=== PATIENT | female | born 1985 | race Hispanic/Latino ===

== ENCOUNTER 2017-08-02 18:58 | Observation (INO) | payer OTHER ==
[~2017-08-02] VITALS: Ht 160 cm; Wt 92.1 kg
[2017-08-02] MEDS ORDERED: PREN1TAB89 PO (19:23)
[2017-08-02] MEDS ORDERED: LACTATED RINGERS 1000ML IV PRN (19:30)
[2017-08-02 19:37] LABS: BILIRUBIN,URINE Negative (NEGATIVE); COLOR,URINE Dark Yellow (YELLOW); GLUCOSE, URINE (UA) Negative (NEGATIVE); KETONES,URINE Trace mg/dL (NEGATIVE); LEUKOCYTE ESTERASE ,URINE Trace (NEGATIVE); NITRATE,URINE Negative (NEGATIVE); OCCULT BLOOD,URINE Negative (NEGATIVE); PROTEIN,URINE Negative (NEGATIVE)
[2017-08-02 19:42] LABS: APPEARANCE,URINE SLIGHTLY CLOUDY (CLEAR)
[2017-08-02 19:44] VITALS: BP 139/78
[2017-08-02 20:25] LABS: RBC,URINE 0-1 /HPF (0-1)
[2017-08-02] MEDS ORDERED: LACTATED RINGERS 1000ML 1,000 ML IV SCH (20:30)
[2017-08-02 20:31] LABS: BACTERIA,URINE Few /HPF (None Seen); SQUAMOUS EPITHELIAL CELL,UR Moderate /LPF (0-2)
[2017-08-02 20:32] LABS: MUCUS,URINE Few LPF (None Seen)
== END 2017-08-02 21:05 | disposition home or self-care (01) ==
LOC: EDH 18:58 → LDH 19:28
PROVIDERS: ADMIT Obstetrics & Gynecology; ATTEND Obstetrics & Gynecology
DX: O26.892 Other specified pregnancy related conditions, second trimester (principal); R10.32 Left lower quadrant pain; R10.30 Lower abdominal pain, unspecified; Z3A.22 22 weeks gestation of pregnancy
CPT/HCPCS: 81001; 99285; G0378 ×2

== ENCOUNTER 2017-08-15 20:22 | Inpatient (IN) | payer OTHER ==
[~2017-08-15] VITALS: Ht 160 cm; Wt 95.3 kg
[~2017-08-15 20:22] MED LIST: PREN1TAB89 PO
[2017-08-15 20:51] LABS: APPEARANCE,URINE Cloudy (CLEAR); BILIRUBIN,URINE Negative (NEGATIVE); COLOR,URINE Yellow (YELLOW); GLUCOSE, URINE (UA) Negative (NEGATIVE); KETONES,URINE Negative (NEGATIVE); LEUKOCYTE ESTERASE ,URINE Large (NEGATIVE); NITRATE,URINE Negative (NEGATIVE); OCCULT BLOOD,URINE Negative (NEGATIVE); PROTEIN,URINE Negative (NEGATIVE)
[2017-08-15 21:00] LABS: BACTERIA,URINE Rare /HPF (None Seen); RBC,URINE None Seen /HPF (0-1)
[2017-08-15] MEDS ORDERED: LACTATED RINGERS 1000ML 1,000 ML IV PRN (21:20)
[2017-08-15] MEDS: AMPICILLIN 2GM+NS 100ML 100 ML IV SCH (22:23)
[2017-08-15] MEDS: LACTATED RINGERS 1000ML 1,000 ML IV SCH (22:23)
[2017-08-15 22:36] LABS: HEMATOCRIT 33.8 % (36-48); MEAN CORPUSCULAR HEMOGLOBIN 29.7 pg (27.0-33.0); MEAN CORPUSCULAR HGB CONC 34.5 g/dL (32.0-36.0); MEAN CORPUSCULAR VOLUME 86.1 fL (79-99); PLATELET COUNT (AUTO) 206 K/uL (130-400); RED BLOOD CELL COUNT(AUTO) 3.93 MIL/uL (4.00-5.50); RED CELL DISTRIBUTION WIDTH 14.2 % (11.0-15.5); WHITE BLOOD COUNT (AUTO) 11.8 K/uL (4.8-10.8)
[2017-08-15 23:09] LABS: AMPHET/METH SCREEN,URINE NEGATIVE (NEGATIVE); BARBITURATE SCREEN, URINE NEGATIVE (NEGATIVE); BENZODIAZEPINES SCREEN,URINE NEGATIVE (NEGATIVE); CANNABINOID SCREEN,URINE NEGATIVE (NEGATIVE); COCAINE SCREEN,URINE NEGATIVE (NEGATIVE); OPIATE SCREEN,URINE NEGATIVE (NEGATIVE); PHENCYCLIDINE SCREEN,URINE NEGATIVE (NEGATIVE)
[2017-08-15] MEDS ORDERED: DEXAMETHASONE SOD PHOSPHATE 4 MG/ML 1ML VIAL ONE (23:35)
[2017-08-16] MEDS: AMPICILLIN 2GM+NS 100ML 100 ML IV SCH ×2 (04:57→14:48)
[2017-08-16] MEDS ORDERED: SIMETHICONE 80 MG TAB.CHEW ONE (05:25)
[2017-08-16] MEDS: DEXAMETHASONE SOD PHOSPHATE 4 MG/ML 1ML VIAL IM SCH ×3 (05:28→18:00)
[2017-08-16 07:24] LABS: RAPID PLASMA REAGIN NONREACTIVE (NONREACTIVE)
[2017-08-16] MEDS ORDERED: SUCCINYLCHOLINE CHLORIDE 20 MG/ML 10 ML VIAL ONE (08:07)
[2017-08-16] MEDS ORDERED: LIDOCAINE HCL-MPF 1% 2ML VIAL ONE (08:07)
[2017-08-16] MEDS ORDERED: PROPOFOL 10 MG/ML 20ML VIAL IV ONE ×3 (08:07→08:42)
[2017-08-16] MEDS ORDERED: MIDAZOLAM HCL 1 MG/ML 2ML VIAL ONE (08:07)
[2017-08-16] MEDS ORDERED: FENTANYL CITRATE PF 50 MCG/1 ML 5ML AMP IV ONE (08:07)
[2017-08-16] MEDS ORDERED: EPHEDRINE-NS PF 50MG/5ML SYRINGE IV ONE (08:11)
[2017-08-16] MEDS ORDERED: CEFAZOLIN SODIUM 1 GM VIAL IVP ONE (08:15)
[2017-08-16] MEDS ORDERED: HEPARIN SODIUM 1000UNIT/ML 10ML VIAL ONE (08:58)
[2017-08-16] MEDS ORDERED: MEPERIDINE-PF 50 MG/ML SYG ONE (09:02)
[2017-08-16] MEDS ORDERED: OXYTOCIN-LR 20 UNITS/1000 ML 1,000 ML IV PRN (09:22)
[2017-08-16] MEDS ORDERED: DEXTROSE 5 %-0.45 % NACL 1,000 ML IV PRN (09:30)
[2017-08-16] MEDS ORDERED: SODIUM CHLORIDE 0.9% 10 ML VIAL IVP PRN (09:30)
[2017-08-16] MEDS: PROMETHAZINE HCL 25 MG/ML 1ML AMPULE IM PRN ×3 (09:41→20:20)
[2017-08-16] MEDS: MEPERIDINE-PF 75 MG/ML SYG IM PRN ×3 (09:41→20:21)
[2017-08-16 10:15] VITALS: BP 128/65
[2017-08-16] MEDS ORDERED: MEPERIDINE-PF 75 MG/ML SYG IM PRN (11:00)
[2017-08-16] MEDS ORDERED: OXYTOCIN-LR 20 UNITS/1000 ML 1,000 ML IV SCH (11:00)
[2017-08-16] MEDS ORDERED: PROMETHAZINE HCL 25 MG/ML 1ML AMPULE IM PRN (11:00)
[2017-08-16 11:41] VITALS: BP 125/64
[2017-08-16 15:40] VITALS: BP 121/70
[2017-08-16] MEDS ORDERED: OXYTOCIN 10 USP UNITS/ML ONE (15:42)
[2017-08-16] MEDS: CEFAZOLIN SODIUM 1 GM VIAL IVP SCH (16:08)
[2017-08-16] MEDS ORDERED: CEFAZOLIN 2GM / 50 ML 50 ML IV SCH (16:30)
[2017-08-16] MEDS ORDERED: LANOLIN 30GM OINTMENT TP PRN (16:45)
[2017-08-16] MEDS ORDERED: DIPHENHYDRAMINE HCL 25 MG CAPSULE PO PRN (16:45)
[2017-08-16] MEDS ORDERED: ACETAMINOPHEN-CODEINE 300/30MG TAB PO PRN (16:45)
[2017-08-16] MEDS ORDERED: DIPH,PERTUSS(ACELL),TET VAC/PF 0.5 ML VIAL IM SCH (16:45)
[2017-08-16] MEDS ORDERED: BISACODYL 10 MG SUPP.RECT RC PRN (16:45)
[2017-08-16] MEDS: HYDROCODONE/ACETAMINOPHEN 5/325 MG TAB PO PRN (17:36)
[2017-08-16 19:27] VITALS: BP 125/71
[2017-08-16] MEDS: DOCUSATE SODIUM 100 MG CAP PO SCH (21:36)
[2017-08-16] MEDS: SIMETHICONE 80 MG TAB.CHEW PO SCH (21:37)
[2017-08-16 22:54] VITALS: BP 104/58
[2017-08-16] MEDS: DEXTROSE 5 %-0.45 % NACL 1,000 ML IV SCH (23:37)
[2017-08-17] MEDS: CEFAZOLIN SODIUM 1 GM VIAL IVP SCH (00:18)
[2017-08-17 03:29] VITALS: BP 111/65
[2017-08-17] MEDS: HYDROCODONE/ACETAMINOPHEN 5/325 MG TAB PO PRN (05:19)
[2017-08-17] MEDS: SIMETHICONE 80 MG TAB.CHEW PO SCH ×2 (05:30→20:54)
[2017-08-17] MEDS: DEXAMETHASONE SOD PHOSPHATE 4 MG/ML 1ML VIAL IM SCH ×3 (06:00→11:26)
[2017-08-17] MEDS: LACTATED RINGERS 1000ML 1,000 ML IV SCH ×2 (06:00→14:00)
[2017-08-17] MEDS: DEXTROSE 5 %-0.45 % NACL 1,000 ML IV SCH (06:46)
[2017-08-17 07:01] LABS: MEAN CORPUSCULAR HEMOGLOBIN 31.3 pg (27.0-33.0); MEAN CORPUSCULAR HGB CONC 36.7 g/dL (32.0-36.0); MEAN CORPUSCULAR VOLUME 85.5 fL (79-99); PLATELET COUNT (AUTO) 182 K/uL (130-400); RED BLOOD CELL COUNT(AUTO) 3.16 MIL/uL (4.00-5.50); WHITE BLOOD COUNT (AUTO) 10.4 K/uL (4.8-10.8)
[2017-08-17 07:39] VITALS: BP 113/58
[2017-08-17 08:25] LABS: HEPATITIS Bs ANTIGEN SCREEN P Negative (Negative)
[2017-08-17] MEDS: SIMETHICONE 80 MG TAB.CHEW PO PRN ×2 (09:22→15:38)
[2017-08-17] MEDS: DOCUSATE SODIUM 100 MG CAP PO SCH ×2 (09:22→20:53)
[2017-08-17] MEDS: IBUPROFEN 600 MG TABLET PO PRN ×3 (09:24→23:19)
[2017-08-17 11:23] VITALS: BP 112/62
[2017-08-17] MEDS ORDERED: DOCU-116 PO (12:40)
[2017-08-17] MEDS ORDERED: IBUP-2077 PO (12:40)
[2017-08-17 15:59] VITALS: BP 100/54
[2017-08-17 19:26] VITALS: BP 109/59
[2017-08-17 23:03] VITALS: BP 111/55
[2017-08-18 03:28] VITALS: BP 117/67
[2017-08-18] MEDS: LACTATED RINGERS 1000ML 1,000 ML IV SCH (06:00)
[2017-08-18 07:23] VITALS: BP 115/62
[2017-08-18] MEDS: DOCUSATE SODIUM 100 MG CAP PO SCH (09:32)
[2017-08-18] MEDS: SIMETHICONE 80 MG TAB.CHEW PO PRN (09:33)
[2017-08-18] MEDS: IBUPROFEN 600 MG TABLET PO PRN (09:35)
== END 2017-08-18 10:30 | disposition home or self-care (01) | DRG 765 ==
LOC: EDH 20:22 → LDH 20:39 → OBSVTOIN 20:39 → LDH 22:08 → WSH 08-16 10:15
PROVIDERS: ADMIT Obstetrics & Gynecology; ATTEND Obstetrics & Gynecology
PROC: 3E0234Z Introduction of Serum, Toxoid and Vaccine into Muscle, Percutaneous Approach (ICD-10-PCS; 2017-08-16)
PROC: 30233S1 Transfusion of Nonautologous Globulin into Peripheral Vein, Percutaneous Approach (ICD-10-PCS; 2017-08-16)
PROC: 10D00Z0 Extraction of Products of Conception, High, Open Approach (ICD-10-PCS; principal; 2017-08-16 08:00)
DX: O42.912 Preterm premature rupture of membranes, unspecified as to length of time between rupture and onset of labor, second trimester (principal); D62 Acute posthemorrhagic anemia; D25.9 Leiomyoma of uterus, unspecified; O77.9 Labor and delivery complicated by fetal stress, unspecified; O34.219 Maternal care for unspecified type scar from previous cesarean delivery; Z37.0 Single live birth; Z3A.23 23 weeks gestation of pregnancy; Z23 Encounter for immunization
CPT/HCPCS: 36415; 59510; 76805; 80305; 81001; 82120; 83033; 85027; 86592; 86701; 86850; 86900; 86901; 87340; 87390; 88307; 90715; A4218; A4344; A4450; A4606; J0290; J0330; J0690; J1100; J1644; J2175; J2250; J2550; J2590; J2704; J2791; J3010; J3490; J7120

== ENCOUNTER 2017-12-02 23:19 | Emergency (ER) | payer OTHER ==
[~2017-12-02 23:19] MED LIST changes: +DOCU-116 PO; +IBUP-2077 PO
[2017-12-03] MEDS ORDERED: LORAZEPAM 2 MG/ML 1 ML VIAL ONE (00:31)
== END 2017-12-03 00:55 | disposition home or self-care (01) ==
LOC: EDH 23:19
DX: G44.209 Tension-type headache, unspecified, not intractable (principal); F41.1 Generalized anxiety disorder; F32.9 Major depressive disorder, single episode, unspecified; Z98.890 Other specified postprocedural states
CPT/HCPCS: 96372; 99283; J2060

== ENCOUNTER 2023-04-08 11:27 | Emergency (ER) | payer OTHER ==
[~2023-04-08] VITALS: Ht 160 cm; Wt 111.1 kg
[~2023-04-08 11:27] MED LIST changes: +FAMO20TA8 PO
[2023-04-08] MEDS ORDERED: DICYCLOMINE HCL 10 MG/5 ML ML PO ONE (12:30)
[2023-04-08] MEDS ORDERED: FAMOTIDINE 20MG TAB PO ONE (12:30)
[2023-04-08] MEDS ORDERED: LIDOCAINE HCL 2% VISCOUS 15 ML UDCUP PO ONE (12:30)
[2023-04-08] MEDS ORDERED: MAG/ALUM/SIMETH 30 ML UDCUP PO ONE (12:30)
[2023-04-08 12:37] LABS: BASOPHILS # (AUTO) 0.06 K/uL (0.00-0.20); BASOPHILS % (AUTO) 0.8 % (0.0-5.0); EOSINOPHILS # (AUTO) 0.65 K/uL (0.00-0.70); EOSINOPHILS % (AUTO) 8.8 % (0.0-8.0); HEMATOCRIT 38.9 % (36-48); IMMATURE GRANULOCYTE ABSOLUTE 0.09 K/uL (0-1); LYMPHOCYTES # (AUTO) 1.5 K/uL (1.0-4.8); LYMPHOCYTES % (AUTO) 20.8 % (21.0-51.0); MEAN CORPUSCULAR HEMOGLOBIN 26.9 pg (27.0-33.0); MEAN CORPUSCULAR HGB CONC 32.6 g/dL (32.0-36.0); MEAN CORPUSCULAR VOLUME 82.4 fL (79-99); MONOCYTES # (AUTO) 0.7 K/uL (0.1-1.0); MONOCYTES % (AUTO) 9.5 % (3.0-13.0); NEUTROPHILS # (AUTO) 4.4 K/uL (1.8-7.7); NEUTROPHILS % (AUTO) 58.9 % (40.0-77.0); PLATELET COUNT (AUTO) 297 K/uL (130-400); RED BLOOD CELL COUNT(AUTO) 4.72 MIL/uL (4.00-5.50); WHITE BLOOD COUNT (AUTO) 7.4 K/uL (4.8-10.8)
[2023-04-08 12:50] LABS: CREATININE 0.7 mg/dL (0.5-1.5); POTASSIUM 4.1 mmol/L (3.5-5.1)
[2023-04-08 12:55] LABS: ALBUMIN 3.5 g/dL (3.5-5.0); BILIRUBIN,TOTAL 0.2 mg/dL (0.2-1.0); TOTAL PROTEIN, SERUM 7.7 g/dL (6.0-8.3)
[2023-04-08] MEDS ORDERED: FAMO20TA8 PO (14:04)
[2023-04-08 14:23] VITALS: BP 158/93; PULSE 84; RESP 16; O2SAT 97
== END 2023-04-08 14:25 | disposition home or self-care (01) ==
LOC: EDH 11:27
DX: K29.00 Acute gastritis without bleeding (principal); I10 Essential (primary) hypertension; Z79.899 Other long term (current) drug therapy; Z98.890 Other specified postprocedural states
CPT/HCPCS: 36415; 71045; 80053; 83690; 84484; 84703; 85025

== ENCOUNTER 2023-05-23 09:06 | Emergency (ER) | payer OTHER ==
[~2023-05-23] VITALS: Ht 160 cm; Wt 108.9 kg
[2023-05-23] MEDS ORDERED: SOLU-MEDROL 125MG VIAL IM ONE (11:00)
[2023-05-23] MEDS ORDERED: PROMETHAZINE HCL 25 MG/ML 1ML AMPULE IM ONE (11:00)
[2023-05-23] MEDS ORDERED: CETI10CA5 PO (13:10)
[2023-05-23] MEDS ORDERED: FLUT16H NASAL (13:10)
[2023-05-23 13:24] VITALS: BP 157/89; PULSE 88; RESP 18; O2SAT 98
== END 2023-05-23 13:24 | disposition home or self-care (01) ==
LOC: EDH 09:06
DX: R05.3 Chronic cough (principal); J31.0 Chronic rhinitis; I10 Essential (primary) hypertension; E11.9 Type 2 diabetes mellitus without complications; Z79.899 Other long term (current) drug therapy; Z98.890 Other specified postprocedural states
CPT/HCPCS: 99284; 96372 ×2; J2930; J2550

== ENCOUNTER → 2024-11-18 | Outpatient (CLI) | payer OTHER ==
[~2024-11-18] MED LIST changes: +CETI10CA5 PO; +FLUT16H NASAL
--- NOTE | 2024-11-20 08:55 | HMCIMG ---
Exam Type: MAMMO SCREENING BILATERAL Clinical Information: BASELINE Comparison: None Technique: Mammogram with CAD was performed with CC and MLO projections. CAD shows no worrisome regions. FINDINGS: The breasts are heterogeneously dense, which may obscure small masses. No dominant mass or suspicious microcalcification identified. There is no nipple retraction or skin thickening. Benign-appearing calcifications are seen. CAD shows no worrisome regions. IMPRESSION: 1. No mammographic signs of malignancy. 2. Routine follow-up recommended. CATEGORY 2: BENIGN FINDINGS Note: A negative x-ray should not delay biopsy if a dominant or clinically suspicious mass is present, since 8-10% of cancers are not identified by mammography. Dense breasts may obscure an underlying neoplasm.
== END | disposition home or self-care (01) ==
LOC: RAH 14:30
PROVIDERS: ATTEND Nurse Practitioner Family
DX: Z12.31 Encounter for screening mammogram for malignant neoplasm of breast (principal); R92.333 Mammographic heterogeneous density, bilateral breasts
CPT/HCPCS: 77067